=== PATIENT | female | born 1940 | race Caucasian/White ===

== ENCOUNTER 2020-02-01 18:25 | Emergency (ER) | payer MEDICARE ==
[2020-02-01] MEDS ORDERED: FENTANYL CITRATE INJ/PF 100 MCG/2 ML AMPUL IV ONE (18:44)
[2020-02-01] MEDS ORDERED: ONDANSETRON HCL INJ/PF 4 MG/2 ML SDV IV ONE (18:44)
--- NOTE | 2020-02-01 18:46 | ER Document Report ---
ED Hand/Wrist Injury - Related Data Home Medications: pepcid <NHAN MORA - Last Filed: 02/01/20 19:57> <KELSI VIERA - Last Filed: 02/01/20 21:48> - General TRAVEL OUTSIDE OF THE [place] IN LAST 30 DAYS: No <TOI VILLARREAL Jenise - Last Filed: 02/01/20 22:34> - General Chief Complaint: Wrist Injury Stated Complaint: FALL/ARM PAIN Time Seen by Provider: 02/01/20 18:39 Primary Care Provider: LENIN GLYNN DO [ACTIVE STAFF] - Follow up as needed Notes: CHIEF COMPLAINT: Left wrist injury HPI: 79-year-old female presenting for evaluation of left wrist injury after a mechanical fall. Patient lost her balance tripped and fell forward. She is right-hand dominant. Complains of left wrist pain. Denies other injuries or complaints. ROS: See HPI - all other systems were reviewed and are otherwise negative Constitutional: no fever Eyes: no drainage, no blurred vision ENT: no runny nose, no sore throat Cardiovascular: no chest pain Resp: no SOB, no cough GI: no vomiting, no diarrhea, no abdominal pain : no dysuria Integumentary: no rash Allergy: no hives Musculoskeletal: + extremity pain or swelling Neurological: no numbness/tingling MEDICATIONS: I agree with the patient medications as charted by the RN. ALLERGIES: I agree with the allergies as charted by the RN. PAST MEDICAL HISTORY/PAST SURGICAL HISTORY: Reviewed and agree as charted by RN. SOCIAL HISTORY: Reviewed and agree as charted by RN. FAMILY HISTORY: No significant familial comorbid conditions directly related to patient complaint EXAM: Reviewed vital signs as charted by RN. CONSTITUTIONAL: Alert and oriented and responds appropriately to questions. Well-appearing; well-nourished, moderate distress secondary to pain HEAD: Normocephalic; atraumatic EYES: PERRL; Conjunctivae clear, sclerae non-icteric ENT: normal nose; no rhinorrhea; moist mucous membranes; pharynx without lesions noted, no uvula edema or deviation, no tonsillar hypertrophy, phonation normal NECK: Supple without meningismus; non-tender; no cervical lymphadenopathy, no masses CARD: RRR; no murmurs, no clicks, no rubs, no gallops; symmetric distal pulses RESP: Normal chest excursion without splinting or tachypnea; breath sounds clear and equal bilaterally; no wheezes, no rhonchi, no rales, pulse oximetry 7% on room air not hypoxic ABD/GI: Normal bowel sounds; non-distended; soft, non-tender, no rebound, no guarding; no palpable organomegaly or masses. BACK: The back appears normal and is non-tender to palpation, there is no CVA tenderness EXT: Deformity is noted to the left wrist. Radial and ulnar pulses are present in the left wrist. Sensation intact in the fingertips with capillary refill less than 3 seconds. No discomfort over the radial head of the left elbow on palpation SKIN: Normal color for age and race; warm; dry; good turgor; no acute lesions noted NEURO: sensory function intact PSYCH: The patient's mood and manner are appropriate. Grooming and personal hygiene are appropriate. MDM: 79-year-old female deformity to the left wrist from a fall. Fall was mechanical in nature. Will treat patient's pain obtain x-ray she will likely need reduction. Last ate or drink anything at 3:30 PM (NHAN MORA) - Related Data Allergies/Adverse Reactions: codeine Allergy (Verified 02/01/20 19:30) Past Medical History - Social History Smoking Status: Never Smoker <NHAN MORA - Last Filed: 02/01/20 19:57> - Social History Family History: Reviewed & Not Pertinent <TOI VILLARREAL - Last Filed: 02/01/20 22:34> Physical Exam - Vital signs Vitals: Temp Pulse Resp BP Pulse Ox 98.2 F 66 18 185/84 H 100 02/01/20 18:39 02/01/20 18:39 02/01/20 18:39 02/01/20 18:39 02/01/20 18:39 Course <NHAN MORA - Last Filed: 02/01/20 19:57> - Diagnostic Test Radiology reviewed: Reports reviewed <TOI VILLARREAL - Last Filed: 02/01/20 22:34> - Re-evaluation Re-evalutation: 02/01/20 19:07 Patient appears to have an angulated dorsally distal radial fracture. Neurovascularly intact. Spoke with Dr. Glynn orthopedics he requests we reduce the fracture. Patient would like sedation for this. Discussed with Dr. Viera attending who will perform the conscious sedation for the reduction. 02/01/20 19:57 Procedure was discussed at length with the patient. I discussed risks and benefits of the procedure as well as conscious sedation. They have indicated that they would likely go home to [facility] for follow-up care. Patient was sedated with etomidate per Dr. Viera. Reduction was performed with manual manipulation. Patient was placed in a sugar tong splint which was held in position to ensure optimal alignment of the fracture fragment. Post reduction x-ray will be obtained, patient will be held until she is awake and alert after sedation. Will be given a copy of her x-rays on disc per her reque st. Patient is unable to differentiate her allergy to codeine's. States that they make her nauseated but is unsure of what she has taken in the past. Will write patient for Percocet but also Zofran. (NHAN MORA) 02/01/20 20:00 Assumed care of patient from Nhan Mora nurse practitioner 02/01/20 21:13 Patient is resting comfortably alert and oriented x3. Reviewed postreduction films with patient and family. Aware of styloid ulnar fracture that was not noticed on the initial x-ray secondary to the dislocation. Requesting pain medication. Will be given Climax prior to discharge. Sling and splint applied by nursing staff as documented. Was counseled on the importance of outpatient follow-up with orthopedics as discussed. Patient was given strict return to the emergency room guidelines. Return for any new or worsening symptoms. All questions were answered. Patient verbalized understanding and agrees with plan of care. 02/01/20 21:16 (TOI VILLARREAL) - Vital Signs Vital signs: Temp Pulse Resp BP Pulse Ox 98.6 F 62 15 159/76 H 99 02/01/20 21:51 02/01/20 19:45 02/01/20 21:21 02/01/20 21:21 02/01/20 21:21 Procedures - Immobilization Left Wrist Time completed: 20:01 Pre-Proc Neuro Vasc Exam: Normal Immobilizer type: Sugar tong, Sling Performed by: Provider Post-Proc Neuro Vasc Exam: Normal, Unchanged from pre-exam Alignment checked and good: Yes <NHAN MORA - Last Filed: 02/01/20 19:57> - Conscious Sedation Conscious sedation Time started: 19:50 Time completed: 20:00 Consent obtained: Yes Indication: left distal radius fx Emergent conditions applies.: E. - ASA Classification - II Pt with a mild systemic disease.: P2. - ASA Classification. Airway Evaluation: Neck immobility Mallampati Classification: Class 3 Used during procedure: Suction available, IV access obtained, Pulse ox on pt., child monitor on pt. Medications administered: Etomidate Reversal agents: None I personally performed/intraservice time: Sedation - Total time for sedation was 10 minutes. I supervised procedure - left wrist reduction - and was present for the sedation entirely and directed the sedation. Pt tolerated well without apparent complications. Complications: No <KELSI VIERA P - Last Filed: 02/01/20 21:48> Discharge <NHAN MORA - Last Filed: 02/01/20 19:57> <KELSI VIERA P - Last Filed: 02/01/20 21:48> <TOI VILLARREAL - Last Filed: 02/01/20 22:34> - Discharge Clinical Impression: Fall Qualifiers: Encounter type: initial encounter Qualified Code(s): W19.XXXA - Unspecified fall, initial encounter Distal radial fracture Qualifiers: Encounter type: initial encounter Fracture type: closed Fracture morphology: other fracture Laterality: left Qualified Code(s): S52.592A - Other fractures of lower end of left radius, initial encounter for closed fracture Ulna styloid fracture, closed Qualifiers: Encounter type: initial encounter Fracture alignment: nondisplaced Laterality: left Qualified Code(s): S52.615A - Nondisplaced fracture of left ulna styloid process, initial encounter for closed fracture Condition: Stable Disposition: HOME, SELF-CARE Instructions: Fractured Radius and Ulna ([facility]), Post Sedation Instructions ([facility]), Splint Precautions ([facility]) Additional Instructions: Ice and elevate the wrist is much as possible. Follow-up with orthopedics of your choice for further evaluation and treatment you have indicated that you will likely go home to have this further treated and evaluated you have been given a copy of your x-rays to take with you. Return to the emergency room for any new or worsening symptoms. Prescriptions: Oxycodone HCl/Acetaminophen [Percocet 5-325 mg Tablet] 1 tab PO Q4H PRN #15 tab PRN Reason: Ondansetron [Zofran Odt 4 mg Tablet] 1 - 2 tab PO Q4H PRN #15 tab.rapdis PRN Reason: For Nausea/Vomiting Referrals: LENIN GLYNN DO [ACTIVE STAFF] - Follow up as needed
--- NOTE | 2020-02-01 19:12 | RADIOLOGY REPORT (SQ) ---
EXAM DESCRIPTION: WRIST LEFT 3 VIEWS IMAGES COMPLETED DATE/TIME: 02/01/2020 7:01 pm REASON FOR STUDY: positive deformity COMPARISON: None. EXAM PARAMETERS: NUMBER OF VIEWS: Three views. TECHNIQUE: AP, lateral and oblique radiographic images acquired of the left wrist. LIMITATIONS: None. FINDINGS: MINERALIZATION: Osteopenia. BONES: Mildly comminuted distal radius fracture with dorsal articular surface involvement -ulnar disp lacement and impaction. Distal radius fracture is dorsally angulated approximately 50. Radiocarpal articulation appears intact. No other fracture identified. SOFT TISSUES: Moderate soft tissue swelling. No radiopaque foreign body. OTHER: No other significant finding. IMPRESSION: Mildly comminuted distal radius fracture with dorsal articular surface involvement -ulna r displacement and impaction. Distal radius fracture is dorsally angulated approximately 50. Radiocarpal articulation appears intact. No other fracture identified. TECHNICAL DOCUMENTATION: JOB ID: [id number] [place]-72 2010 [employer]- All Rights Reserved Reading location - IP/workstation name: [email or web address]
[2020-02-01] MEDS ORDERED: ETOMIDATE INJ/PF 20 MG/10 ML SDV IV ONE (19:37)
[2020-02-01] MEDS ORDERED: NORMAL SALINE 1000 ML 1,000 ML IV ONE (19:46)
[2020-02-01] MEDS ORDERED: HYDROCODONE/ACETAMINOPHEN 5-325 MG (6 TAB/ER DISP) PO PRN (20:06)
--- NOTE | 2020-02-01 20:44 | RADIOLOGY REPORT (SQ) ---
2 VIEWS LEFT WRIST HISTORY: Post reduction. COMPARISON: Radiographs from earlier the same day. FINDINGS: Interval casting and reduction of the mildly comminuted distal radial fracture, now in near anatomic alignment. There may also be an ulnar styloid fracture. There is surrounding soft tissue swelling. Generalized osteopenia is present. IMPRESSION: 1. Interval casting and reduction of distal radial fracture. 2. Query ulnar styloid fracture.
[2020-02-01] MEDS ORDERED: HYDROCODONE/ACETAMINOPHEN 5-325 MG TABLET PO ONE (21:14)
[2020-02-01 21:51] VITALS: BP 159/76
== END 2020-02-01 21:51 | disposition home or self-care (01) ==
LOC: ER 18:25
DX: S62.515A Nondisplaced fracture of proximal phalanx of left thumb, initial encounter for closed fracture (principal); S52.592A Other fractures of lower end of left radius, initial encounter for closed fracture; W01.0XXA Fall on same level from slipping, tripping and stumbling without subsequent striking against object, initial encounter
CPT/HCPCS: 99285; 96361; 99152; 96374; 96375; 73100; 73110; 25605; J3010; J2405; J7030; J3490; A9270 ×2